=== PATIENT | female | born 1945 | race Two or more races ===

== ENCOUNTER 2017-08-31 08:25 | Outpatient (CLI) | payer OTHER | END 2017-08-31 08:30 | disposition home or self-care (01) | LOC: SONOGRAMA 08:25 | DX: E04.2 Nontoxic multinodular goiter (principal) ==

== ENCOUNTER 2017-11-30 08:41 | Outpatient (CLI) | payer OTHER | END 2017-11-30 08:52 | disposition home or self-care (01) | LOC: MAMO-SONO 08:41 | DX: Z12.31 Encounter for screening mammogram for malignant neoplasm of breast (principal); Z87.898 Personal history of other specified conditions; N60.11 Diffuse cystic mastopathy of right breast; N60.12 Diffuse cystic mastopathy of left breast ==

== ENCOUNTER 2018-06-03 10:06 | Outpatient (CLI) | payer OTHER | END 2018-06-03 17:00 | disposition home or self-care (01) | LOC: MAMO-SONO 10:06 | DX: Z12.31 Encounter for screening mammogram for malignant neoplasm of breast (principal); R92.1 Mammographic calcification found on diagnostic imaging of breast ==

== ENCOUNTER 2018-07-14 14:45 | Outpatient (CLI) | payer OTHER | END 2018-07-14 14:52 | disposition home or self-care (01) | LOC: RAD 14:45 | DX: M12.2 Villonodular synovitis (pigmented) (principal); M25.569 Pain in unspecified knee ==

== ENCOUNTER 2018-07-19 12:31 | Outpatient (CLI) | payer OTHER | END 2018-07-19 14:04 | disposition home or self-care (01) | LOC: SONOGRAMA 12:31 | DX: M75.31 Calcific tendinitis of right shoulder (principal) ==

== ENCOUNTER 2018-09-29 09:23 | Outpatient (CLI) | payer OTHER | END 2018-09-29 09:32 | disposition home or self-care (01) | LOC: SONOGRAMA 09:23 | DX: E04.2 Nontoxic multinodular goiter (principal) ==

== ENCOUNTER 2019-01-07 09:21 | Outpatient (CLI) | payer OTHER | END 2019-01-07 09:35 | disposition home or self-care (01) | LOC: MRI 09:21 | DX: M25.561 Pain in right knee (principal); M25.562 Pain in left knee | CPT/HCPCS: 73718 ==

== ENCOUNTER 2019-01-31 12:05 | Outpatient (CLI) | payer OTHER | END 2019-01-31 12:08 | disposition home or self-care (01) | LOC: RAD 12:05 | DX: M54.12 Radiculopathy, cervical region (principal) ==

== ENCOUNTER 2019-06-30 08:25 | Outpatient (CLI) | payer OTHER | END 2019-06-30 10:20 | disposition home or self-care (01) | LOC: NUCLEAR 08:25 | DX: R00.1 Bradycardia, unspecified (principal); R07.89 Other chest pain; E04.2 Nontoxic multinodular goiter ==

== ENCOUNTER 2019-07-05 11:10 | Outpatient (CLI) | payer OTHER | END 2019-07-05 11:57 | disposition home or self-care (01) | LOC: MAMO-SONO 11:10 | DX: Z12.31 Encounter for screening mammogram for malignant neoplasm of breast (principal); Z87.898 Personal history of other specified conditions ==

== ENCOUNTER 2020-08-13 11:41 | Outpatient (CLI) | payer OTHER | END 2020-08-13 14:51 | disposition home or self-care (01) | LOC: LAB 11:41 | PROVIDERS: ATTEND Radiology Diagnostic Radiology | DX: N20.0 Calculus of kidney (principal) ==

== ENCOUNTER 2020-08-15 11:15 | Outpatient (CLI) | payer OTHER | END 2020-08-15 11:25 | disposition home or self-care (01) | LOC: TOM 11:15 | PROVIDERS: ATTEND Internal Medicine Gastroenterology | DX: R10.13 Epigastric pain (principal) | CPT/HCPCS: 74177; Q9965 ==

== ENCOUNTER 2020-09-06 13:05 | Outpatient (CLI) | payer OTHER | END 2020-09-06 13:19 | disposition home or self-care (01) | LOC: SONOGRAMA 13:05 → MAMO-SONO 13:15 → SONOGRAMA 13:19 | PROVIDERS: ATTEND Internal Medicine Cardiovascular Disease | DX: E04.2 Nontoxic multinodular goiter (principal) ==

== ENCOUNTER 2021-01-04 11:16 | Outpatient (CLI) | payer OTHER | END 2021-01-04 11:18 | disposition home or self-care (01) | LOC: NUCLEAR 11:16 | DX: I87.2 Venous insufficiency (chronic) (peripheral) (principal) ==

== ENCOUNTER 2021-01-04 12:12 | Outpatient (CLI) | payer OTHER | END 2021-01-04 12:17 | disposition home or self-care (01) | LOC: RAD 12:12 | DX: M17.0 Bilateral primary osteoarthritis of knee (principal) ==

== ENCOUNTER 2021-03-13 08:33 | Outpatient (CLI) | payer OTHER | END 2021-03-13 08:48 | disposition home or self-care (01) | LOC: SONOGRAMA 08:33 → MAMO-SONO 08:45 → SONOGRAMA 08:48 | PROVIDERS: ATTEND Specialist | DX: M71.22 Synovial cyst of popliteal space [Baker], left knee (principal); M23.307 Other meniscus derangements, unspecified meniscus, left knee | CPT/HCPCS: 73721 ==

== ENCOUNTER 2021-03-25 10:54 | Outpatient (CLI) | payer OTHER | END 2021-03-25 11:09 | disposition home or self-care (01) | LOC: MAMO-SONO 10:54 | PROVIDERS: ATTEND Internal Medicine Cardiovascular Disease | DX: R92.0 Mammographic microcalcification found on diagnostic imaging of breast (principal); Z12.31 Encounter for screening mammogram for malignant neoplasm of breast ==

== ENCOUNTER 2021-04-18 12:53 | Outpatient (CLI) | payer OTHER | END 2021-04-18 12:59 | disposition home or self-care (01) | LOC: RAD 12:53 | PROVIDERS: ATTEND Internal Medicine | DX: M54.59 Other low back pain (principal) ==

== ENCOUNTER 2021-06-20 08:45 | Outpatient (CLI) | payer OTHER | END 2021-06-20 08:48 | disposition home or self-care (01) | LOC: SONOGRAMA 08:45 | PROVIDERS: ATTEND Pathology Anatomic Pathology & Clinical Pathology | DX: E04.1 Nontoxic single thyroid nodule (principal) ==

== ENCOUNTER 2021-10-31 09:19 | Outpatient (CLI) | payer OTHER | END 2021-10-31 09:31 | disposition home or self-care (01) | LOC: SONOGRAMA 09:19 | PROVIDERS: ATTEND Internal Medicine Hematology & Oncology | DX: R16.0 Hepatomegaly, not elsewhere classified (principal) ==

== ENCOUNTER 2021-11-01 11:27 | Outpatient (CLI) | payer OTHER | END 2021-11-01 11:28 | disposition home or self-care (01) | LOC: NUCLEAR 11:27 | PROVIDERS: ATTEND Internal Medicine Hematology & Oncology | DX: M81.0 Age-related osteoporosis without current pathological fracture (principal) ==

== ENCOUNTER 2022-04-22 12:43 | Outpatient (CLI) | payer OTHER | END 2022-04-22 12:48 | disposition home or self-care (01) | LOC: MAMO-SONO 12:43 | PROVIDERS: ATTEND Specialist | DX: Z12.39 Encounter for other screening for malignant neoplasm of breast (principal); N60.39 Fibrosclerosis of unspecified breast ==

== ENCOUNTER → 2022-06-24 | Outpatient (CLI) | payer OTHER | END | disposition home or self-care (01) | LOC: SONOGRAMA 11:15 | PROVIDERS: ATTEND Specialist | DX: E27.9 Disorder of adrenal gland, unspecified (principal); E03.8 Other specified hypothyroidism ==

== ENCOUNTER 2022-07-16 12:05 | Outpatient (CLI) | payer OTHER | END 2022-07-16 12:14 | disposition home or self-care (01) | LOC: RAD 12:05 | PROVIDERS: ATTEND Specialist | DX: I70.0 Atherosclerosis of aorta (principal) ==

== ENCOUNTER → 2022-10-15 | Outpatient (CLI) | payer OTHER | END | disposition home or self-care (01) | LOC: RAD 11:13 | PROVIDERS: ATTEND Ophthalmology | DX: Z98.41 Cataract extraction status, right eye (principal); H25.011 Cortical age-related cataract, right eye ==

== ENCOUNTER 2022-10-20 11:36 | Outpatient (CLI) | payer OTHER | END 2022-10-20 11:41 | disposition home or self-care (01) | LOC: LAB 11:36 → EKG 11:36 | PROVIDERS: ATTEND Ophthalmology | DX: I11.9 Hypertensive heart disease without heart failure (principal) ==

== ENCOUNTER 2022-10-31 08:49 | Outpatient (CLI) | payer OTHER | END 2022-10-31 08:53 | disposition home or self-care (01) | LOC: SONOGRAMA 08:49 | PROVIDERS: ATTEND Specialist | DX: E11.21 Type 2 diabetes mellitus with diabetic nephropathy (principal) ==

== ENCOUNTER 2023-04-29 08:09 | Outpatient (CLI) | payer OTHER | END 2023-04-29 08:19 | disposition home or self-care (01) | LOC: RAD 08:09 | PROVIDERS: ATTEND Specialist | DX: M12.569 Traumatic arthropathy, unspecified knee (principal); S83.249A Other tear of medial meniscus, current injury, unspecified knee, initial encounter | CPT/HCPCS: 73721 ==

== ENCOUNTER 2023-05-20 14:30 | Outpatient (CLI) | payer OTHER | END 2023-05-20 14:37 | disposition home or self-care (01) | LOC: RAD 14:30 | PROVIDERS: ATTEND Orthopaedic Surgery | DX: M25.561 Pain in right knee (principal); M25.562 Pain in left knee ==

== ENCOUNTER 2023-06-15 08:33 | Outpatient (CLI) | payer OTHER | END 2023-06-15 08:44 | disposition home or self-care (01) | LOC: RAD 08:33 | PROVIDERS: ATTEND Orthopaedic Surgery | DX: M54.50 Low back pain, unspecified (principal) ==

== ENCOUNTER → 2023-06-15 08:49 | Outpatient (CLI) | payer OTHER ==
[2023-06-15 10:57] LABS: ALBUMIN 4.1 gm/dL (3.4-5.0); BILIRUBIN TOTAL 0.47 mg/dL (0.3-1.2); CALCIUM 9.6 mg/dL (8.5-10.1); CREATININE SERUM 0.52 mg/dL (0.55-1.02); GFR 114.65; MAGNESIUM 2.2 mg/dL (1.8-2.4); PHOSPHOROUS 3.9 mg/dL (2.5-4.9); POTASSIUM 4.08 mEq/L (3.5-5.1); TOTAL PROTEIN 7.1 gm/dL (6.4-8.2)
[2023-06-17 05:43] LABS: CALCIUM IONIZED 5.1 mg/dL (4.5-5.6)
== END | disposition home or self-care (01) ==
LOC: LAB 08:49
PROVIDERS: ATTEND Orthopaedic Surgery
DX: E55.9 Vitamin D deficiency, unspecified (principal); E56.1 Deficiency of vitamin K; E21.3 Hyperparathyroidism, unspecified; M81.8 Other osteoporosis without current pathological fracture

== ENCOUNTER 2023-07-01 10:12 | Outpatient (CLI) | payer OTHER | END 2023-07-01 10:22 | disposition home or self-care (01) | LOC: MAMO-SONO 10:12 | PROVIDERS: ATTEND Specialist | DX: N60.39 Fibrosclerosis of unspecified breast (principal); Z12.39 Encounter for other screening for malignant neoplasm of breast; E03.9 Hypothyroidism, unspecified ==

== ENCOUNTER 2023-11-25 09:12 | Outpatient (CLI) | payer OTHER ==
[2023-11-25 09:46] LABS: HEMATOCRIT 36.5 % (36.0-45.00); HEMOGLOBIN 12.2 g/dL (12.0-15.00); MEAN CELL VOLUME 92.7 fL (80.00-100.00); MEAN CORPUSCULAR HEMOGLOBIN 31.1 pg (27.00-32.0); MEAN CORPUSCULAR HGB CONC 33.5 g/dl (32.0-36.0); PLATELET COUNT 166 K/uL (150-450); RED BLOOD COUNT 3.93 M/uL (4.00-6.00); RED CELL DISTRIBUTION WIDTH 13.5 % (11.5-14.5)
[2023-11-25 09:59] LABS: PH,URINE 5.5 (5.0-8.0); URINE APPEARANCE Clear; URINE BILIRRUBIN Negative (NEGATIVE); URINE BLOOD Negative; URINE COLOR Yellow; URINE GLUCOSE Negative (NEGATIVE); URINE LEUKOCYTE Trace; URINE NITRATE Negative; URINE PROTEIN Negative (NEGATIVE)
[2023-11-25 10:00] LABS: URINE BACTERIA 56.6 uL (0.0-1933); URINE EPITHELIAL CELLS 8.6 uL (0.0-38.8); URINE RBC 6.1 uL (0.0-20.8); URINE WBC 11.4 uL (0.0-23.2)
[2023-11-25 10:42] LABS: BILIRUBIN TOTAL 0.74 mg/dL (0.3-1.2); CALCIUM 8.7 mg/dL (8.5-10.1); CHOL HDL RATIO 3.2 (0-5.0); CREATININE SERUM 0.56 mg/dL (0.55-1.02); FREE TRIODOTIRONINE 2.64 pg/ml (2.18-3.98); GFR 104.97; GLOBULINA 3.2 G/DL (2.4-3.5); T4 FREE 1.06 NG/ML (0.76-1.46); TOTAL PROTEIN 7.2 gm/dL (6.4-8.2); TSH 1.21 uIU/mL (0.358-3.74)
== END 2023-11-25 09:17 | disposition home or self-care (01) ==
LOC: LAB 09:12
PROVIDERS: ATTEND Specialist
DX: E11.69 Type 2 diabetes mellitus with other specified complication (principal); N39.9 Disorder of urinary system, unspecified; E11.21 Type 2 diabetes mellitus with diabetic nephropathy; E03.8 Other specified hypothyroidism; D64.89 Other specified anemias; Z13.220 Encounter for screening for lipoid disorders

== ENCOUNTER → 2024-03-25 09:18 | Outpatient (CLI) | payer OTHER ==
[2024-03-25 09:53] LABS: HEMATOCRIT 35.6 % (36.0-45.00); HEMOGLOBIN 12.3 g/dL (12.0-15.00); MEAN CELL VOLUME 90.8 fL (80.00-100.00); MEAN CORPUSCULAR HEMOGLOBIN 31.4 pg (27.00-32.0); MEAN CORPUSCULAR HGB CONC 34.5 g/dl (32.0-36.0); PLATELET COUNT 203 K/uL (150-450); RED BLOOD COUNT 3.92 M/uL (4.00-6.00); RED CELL DISTRIBUTION WIDTH 13.9 % (11.5-14.5)
[2024-03-25 09:58] LABS: URINE APPEARANCE Clear; URINE BILIRRUBIN Negative (NEGATIVE); URINE BLOOD Negative; URINE COLOR Yellow; URINE GLUCOSE Negative (NEGATIVE); URINE KETONE Negative (NEGATIVE); URINE LEUKOCYTE Small; URINE NITRATE Negative; URINE PROTEIN Negative (NEGATIVE); URINE UROBILINOGEN 0.2 E.U./dl
[2024-03-25 10:03] LABS: URINE BACTERIA 62.9 uL (0.0-1933); URINE RBC 6.5 uL (0.0-20.8)
[2024-03-25 11:06] LABS: ALBUMIN 3.9 gm/dL (3.4-5.0); ALKALINE PHOSPHATASE 47 U/L (50-136); ALT/SGPT 21 U/L (12-78); ANION GAP 10 (10.0-20.0); AST/SGOT 15 U/L (15-37); BLOOD UREA NITROGEN 15 mg/dL (7-18); BUN CREA RATIO 25 (7.0-25.0); C-REACTIVE PROTEIN < 0.29 MG/DL (0.00-0.29); CALCIUM 8.8 mg/dL (8.5-10.1); CARBON DIOXIDE 29 mEq/L (21-32); CHLORIDE 107 mmol/L (98-107); CHOLESTEROL 191 mg/dL (0-200); CREATININE SERUM 0.61 mg/dL (0.55-1.02); FREE TRIODOTIRONINE 2.72 pg/ml (2.18-3.98); GLOBULINA 2.8 G/DL (2.4-3.5); GLUCOSE FASTING 87 mg/dL (65-100); HDL 63 mg/dl (40-60); LDL 113 mg/dl (0-130); OSMOLALITY SERUM 283 MOSM/KG (275-295); POTASSIUM 3.98 mEq/L (3.5-5.1); SODIUM 142 mmol/L (136-145); T4 FREE 1.03 NG/ML (0.76-1.46); TOTAL PROTEIN 6.7 gm/dL (6.4-8.2); TRIGLYCERIDES 77 mg/dL (0-150); VLDL 15 (0-39)
== END | disposition home or self-care (01) ==
LOC: LAB 09:18
PROVIDERS: ATTEND Specialist
DX: E11.21 Type 2 diabetes mellitus with diabetic nephropathy (principal); M00.80 Arthritis due to other bacteria, unspecified joint; N39.9 Disorder of urinary system, unspecified; N25.81 Secondary hyperparathyroidism of renal origin; E11.69 Type 2 diabetes mellitus with other specified complication; D64.89 Other specified anemias; E03.8 Other specified hypothyroidism; Z13.220 Encounter for screening for lipoid disorders

== ENCOUNTER → 2024-03-29 | Outpatient (CLI) | payer OTHER | END | disposition home or self-care (01) | LOC: LAB 15:31 | PROVIDERS: ATTEND Specialist | DX: D64.9 Anemia, unspecified (principal) ==

== ENCOUNTER 2024-06-27 10:48 | Outpatient (CLI) | payer OTHER ==
[2024-06-27 11:35] LABS: HEMATOCRIT 36.8 % (36.0-45.00); HEMOGLOBIN 12.8 g/dL (12.0-15.00); MEAN CORPUSCULAR HEMOGLOBIN 31.2 pg (27.00-32.0); MEAN CORPUSCULAR HGB CONC 34.7 g/dl (32.0-36.0); PLATELET COUNT 187 K/uL (150-450); RED BLOOD COUNT 4.09 M/uL (4.00-6.00); RED CELL DISTRIBUTION WIDTH 13.1 % (11.5-14.5)
[2024-06-27 12:42] LABS: URINE APPEARANCE Clear; URINE BILIRRUBIN Negative (NEGATIVE); URINE BLOOD Negative; URINE COLOR Yellow; URINE GLUCOSE Negative (NEGATIVE); URINE KETONE Trace (NEGATIVE); URINE LEUKOCYTE Negative; URINE NITRATE Negative; URINE PROTEIN Negative (NEGATIVE); URINE UROBILINOGEN 0.2 E.U./dl
[2024-06-27 12:46] LABS: URINE RBC 5.4 uL (0.0-20.8)
[2024-06-27 12:53] LABS: URINE BACTERIA 2.4 uL (0.0-1933); URINE CAST 0.58 uL (0.0-1.40); URINE EPITHELIAL CELLS 1.1 uL (0.0-38.8); URINE WBC 1.7 uL (0.0-23.2)
[2024-06-27 13:04] LABS: ALBUMIN 3.9 gm/dL (3.4-5.0); BILIRUBIN TOTAL 0.65 mg/dL (0.3-1.2); CALCIUM 9.2 mg/dL (8.5-10.1); CHOL HDL RATIO 2.8 (0-5.0); CREATININE SERUM 0.55 mg/dL (0.55-1.02); FREE TRIODOTIRONINE 2.61 pg/ml (2.18-3.98); GFR 107.18; GLOBULINA 3.3 G/DL (2.4-3.5); POTASSIUM 4.3 mEq/L (3.5-5.1); T4 FREE 1.2 NG/ML (0.76-1.46); TOTAL PROTEIN 7.2 gm/dL (6.4-8.2); TSH 1.42 uIU/mL (0.358-3.74)
== END 2024-06-27 10:49 | disposition home or self-care (01) ==
LOC: LAB 10:48
PROVIDERS: ATTEND Specialist
DX: E03.9 Hypothyroidism, unspecified (principal); E11.21 Type 2 diabetes mellitus with diabetic nephropathy; N39.9 Disorder of urinary system, unspecified; E78.2 Mixed hyperlipidemia; E11.65 Type 2 diabetes mellitus with hyperglycemia; D64.9 Anemia, unspecified; N39.0 Urinary tract infection, site not specified; E55.9 Vitamin D deficiency, unspecified

== ENCOUNTER → 2024-07-25 09:12 | Outpatient (CLI) | payer OTHER ==
[2024-07-25 11:03] LABS: ALBUMIN 3.9 gm/dL (3.4-5.0); BILIRUBIN TOTAL 0.69 mg/dL (0.3-1.2); CREATININE SERUM 0.54 mg/dL (0.55-1.02); GFR 109.47; GLOBULINA 3.1 G/DL (2.4-3.5); MAGNESIUM 2.3 mg/dL (1.8-2.4); PHOSPHOROUS 3.1 mg/dL (2.5-4.9); POTASSIUM 4.1 mEq/L (3.5-5.1)
[2024-07-26 15:09] LABS: CALCIUM IONIZED 4.9 mg/dL (4.5-5.6)
== END | disposition home or self-care (01) ==
LOC: LAB 09:12
PROVIDERS: ATTEND Orthopaedic Surgery
DX: E55.9 Vitamin D deficiency, unspecified (principal); M85.9 Disorder of bone density and structure, unspecified; E56.1 Deficiency of vitamin K; E21.3 Hyperparathyroidism, unspecified; E88.89 Other specified metabolic disorders; M81.8 Other osteoporosis without current pathological fracture

== ENCOUNTER 2024-08-15 13:56 | Outpatient (CLI) | payer OTHER | END 2024-08-15 13:58 | disposition home or self-care (01) | LOC: NUCLEAR 13:56 | PROVIDERS: ATTEND Orthopaedic Surgery | DX: M81.0 Age-related osteoporosis without current pathological fracture (principal) ==

== ENCOUNTER 2024-09-06 09:05 | Outpatient (CLI) | payer OTHER | END 2024-09-07 09:08 | disposition home or self-care (01) | LOC: MAMO-SONO 09:05 | PROVIDERS: ATTEND Specialist | DX: E03.9 Hypothyroidism, unspecified (principal); N60.39 Fibrosclerosis of unspecified breast; Z12.31 Encounter for screening mammogram for malignant neoplasm of breast; Z12.39 Encounter for other screening for malignant neoplasm of breast; R51.0 Headache with orthostatic component, not elsewhere classified ==

== ENCOUNTER → 2024-09-09 07:38 | Outpatient (CLI) | payer OTHER ==
[2024-09-09 08:26] LABS: CALCIUM 8.8 mg/dL (8.5-10.1); CREATININE SERUM 0.52 mg/dL (0.55-1.02); GFR 114.04; POTASSIUM 3.92 mEq/L (3.5-5.1)
== END | disposition home or self-care (01) ==
LOC: LAB 07:38
PROVIDERS: ATTEND Otolaryngology
DX: I10 Essential (primary) hypertension (principal)

== ENCOUNTER → 2024-09-09 | Outpatient (CLI) | payer OTHER | END | disposition home or self-care (01) | LOC: MRI 08:04 | PROVIDERS: ATTEND Otolaryngology | DX: D49.2 Neoplasm of unspecified behavior of bone, soft tissue, and skin (principal) | CPT/HCPCS: 70553; Q9965 ==

== ENCOUNTER → 2024-09-29 09:39 | Outpatient (CLI) | payer OTHER ==
[2024-09-29 10:57] LABS: BASO % 0.6 % (0.1-1.2); EOS # 0.03 (0.04-0.54); EOS % 0.6 % (0.7-7.0); HEMATOCRIT 33.7 % (34.1-44.9); HEMOGLOBIN 11.2 g/dL (11.2-15.7); LYMPH # 1.02 (1.18-3.74); LYMPH % 21.5 % (19.3-53.1); MEAN CORPUSCULAR HEMOGLOBIN 29.9 pg (25.6-32.2); MONO % 6.3 % (4.7-12.5); NEUT # 3.35 (1.56-6.13); NEUT % 70.6 % (34.0-71.1); PLATELET COUNT 179 K/uL (163-369); RED BLOOD COUNT 3.74 M/uL (3.93-5.22); RED CELL DISTRIBUTION WIDTH 13.5 % (11.6-14.4)
[2024-09-29 10:59] LABS: PH,URINE 7.5 (5.0-8.0); URINE APPEARANCE Clear; URINE BILIRRUBIN Negative (NEGATIVE); URINE BLOOD Negative; URINE COLOR Yellow; URINE GLUCOSE Negative (NEGATIVE); URINE KETONE Negative (NEGATIVE); URINE LEUKOCYTE Small; URINE NITRATE Negative; URINE PROTEIN Negative (NEGATIVE); URINE UROBILINOGEN 0.2 E.U./dl
[2024-09-29 11:02] LABS: URINE BACTERIA 13.4 uL (0.0-1933); URINE EPITHELIAL CELLS 4.1 uL (0.0-38.8); URINE RBC 2.9 uL (0.0-20.8); URINE WBC 26.8 uL (0.0-23.2)
[2024-09-29 11:10] LABS: CREATININE URINE RANDOM 73.8 MG/DL (30-125)
[2024-09-29 12:02] LABS: ALBUMIN 3.7 gm/dL (3.4-5.0); BILIRUBIN TOTAL 0.58 mg/dL (0.3-1.2); CALCIUM 8.8 mg/dL (8.5-10.1); CHOL HDL RATIO 2.8 (0-5.0); CREATININE SERUM 0.54 mg/dL (0.55-1.02); FREE TRIODOTIRONINE 2.51 pg/ml (2.18-3.98); GFR 109.18; POTASSIUM 4.19 mEq/L (3.5-5.1); T4 FREE 1.08 NG/ML (0.76-1.46); TOTAL PROTEIN 6.7 gm/dL (6.4-8.2); TSH 1.5 uIU/mL (0.358-3.74)
== END | disposition home or self-care (01) ==
LOC: LAB 09:39
PROVIDERS: ATTEND Specialist
DX: E03.9 Hypothyroidism, unspecified (principal); E11.21 Type 2 diabetes mellitus with diabetic nephropathy; N39.9 Disorder of urinary system, unspecified; E78.2 Mixed hyperlipidemia; E11.65 Type 2 diabetes mellitus with hyperglycemia; D64.9 Anemia, unspecified; E55.9 Vitamin D deficiency, unspecified

== ENCOUNTER 2024-11-03 08:50 | Outpatient (CLI) | payer OTHER ==
[2024-11-03 09:28] LABS: BASO % 0.3 % (0.1-1.2); EOS # 0.04 (0.04-0.54); EOS % 0.6 % (0.7-7.0); HEMATOCRIT 33.5 % (34.1-44.9); HEMOGLOBIN 11.1 g/dL (11.2-15.7); LYMPH # 1.04 (1.18-3.74); MEAN CORPUSCULAR HEMOGLOBIN 29.6 pg (25.6-32.2); MONO % 6.1 % (4.7-12.5); NEUT # 4.98 (1.56-6.13); NEUT % 76.5 % (34.0-71.1); PLATELET COUNT 202 K/uL (163-369); RED BLOOD COUNT 3.75 M/uL (3.93-5.22); RED CELL DISTRIBUTION WIDTH 13.3 % (11.6-14.4)
[2024-11-03 10:41] LABS: % SATURACION 20.8 % (15-50); FERRITIN 22.9 NG/ML (8-252)
[2024-11-03 11:50] LABS: FOLIC ACID 13.86 ng/ml (4.78-20)
[2024-11-04 13:12] LABS: hgb a 97.5 % (96.4-98.8); hgb a2 2.5 % (1.8-3.2); hgb f 0 % (0.0-2.0); hgb s 0 % (0.0)
== END 2024-11-03 08:54 | disposition home or self-care (01) ==
LOC: LAB 08:50
PROVIDERS: ATTEND Specialist
DX: D64.9 Anemia, unspecified (principal); D51.0 Vitamin B12 deficiency anemia due to intrinsic factor deficiency

== ENCOUNTER 2024-11-03 09:39 | Outpatient (CLI) | payer OTHER | END 2024-11-03 09:44 | disposition home or self-care (01) | LOC: RAD 09:39 | PROVIDERS: ATTEND Orthopaedic Surgery | DX: M54.2 Cervicalgia (principal) ==

== ENCOUNTER → 2025-01-13 07:31 | Outpatient (CLI) | payer OTHER ==
[2025-01-13 08:34] LABS: ALT/SGPT 17.0 U/L (12-78); AST/SGOT 16.0 U/L (15-37); BILIRUBIN TOTAL 0.58 mg/dL (0.3-1.2); BUN CREA RATIO 37.0 (7.0-25.0); CREATININE SERUM 0.52 mg/dL (0.55-1.02); GFR 114.04; GLOBULINA 3.4 G/DL (2.4-3.5); GLUCOSE FASTING 96.0 mg/dL (65-100); OSMOLALITY SERUM 285.0 MOSM/KG (275-295)
== END | disposition home or self-care (01) ==
LOC: LAB 07:31
PROVIDERS: ATTEND Orthopaedic Surgery
DX: E88.89 Other specified metabolic disorders (principal)

== ENCOUNTER → 2025-02-01 08:49 | Outpatient (CLI) | payer OTHER ==
[2025-02-01 09:36] LABS: BASO % 0.6 % (0.1-1.2); EOS # 0.03 (0.04-0.54); EOS % 0.6 % (0.7-7.0); LYMPH # 0.93 (1.18-3.74); LYMPH % 18.8 % (19.3-53.1); MEAN PLATELET VOLUME 10.70 fl (9.4-12.4); MONO # 0.33 (0.24-0.82); MONO % 6.7 % (4.7-12.5); NEUT # 3.62 (1.56-6.13); NEUT % 73.1 % (34.0-71.1); RED CELL DISTRIBUTION WIDTH 13.9 % (11.6-14.4)
[2025-02-01 10:31] LABS: ALT/SGPT 15.0 U/L (12-78); AST/SGOT 17.0 U/L (15-37); BILIRUBIN TOTAL 0.6 mg/dL (0.3-1.2); BUN CREA RATIO 24.0 (7.0-25.0); CREATININE SERUM 0.5 mg/dL (0.55-1.02); GFR 119.32; GLOBULINA 3.2 G/DL (2.4-3.5); GLUCOSE FASTING 96.0 mg/dL (65-100); OSMOLALITY SERUM 281.0 MOSM/KG (275-295)
== END | disposition home or self-care (01) ==
LOC: LAB 08:49
PROVIDERS: ATTEND Specialist
DX: D64.9 Anemia, unspecified (principal); E11.65 Type 2 diabetes mellitus with hyperglycemia

== ENCOUNTER 2025-02-28 07:15 | Outpatient (CLI) | payer OTHER | END 2025-02-28 07:16 | disposition home or self-care (01) | LOC: NUCLEAR 07:15 | PROVIDERS: ATTEND Internal Medicine | DX: I20.9 Angina pectoris, unspecified (principal) | CPT/HCPCS: 78452; 93017; A9500 ==

== ENCOUNTER 2025-04-21 08:37 | Outpatient (CLI) | payer OTHER ==
[2025-04-21 09:17] LABS: BASO % 0.7 % (0.1-1.2); EOS # 0.03 (0.04-0.54); EOS % 0.7 % (0.7-7.0); LYMPH # 0.82 (1.18-3.74); LYMPH % 17.8 % (19.3-53.1); MEAN PLATELET VOLUME 11.00 fl (9.4-12.4); MONO # 0.34 (0.24-0.82); MONO % 7.4 % (4.7-12.5); NEUT # 3.37 (1.56-6.13); NEUT % 73.2 % (34.0-71.1); RED CELL DISTRIBUTION WIDTH 13.8 % (11.6-14.4)
[2025-04-21 09:40] LABS: CREATININE URINE RANDOM 43.60 MG/DL (30-125)
[2025-04-21 10:15] LABS: ALT/SGPT 21.0 U/L (12-78); AST/SGOT 16.0 U/L (15-37); BILIRUBIN TOTAL 0.67 mg/dL (0.3-1.2); BUN CREA RATIO 21.0 (7.0-25.0); CHOL HDL RATIO 2.5 (0-5.0); CREATININE SERUM 0.63 mg/dL (0.55-1.02); GFR 91.39; GLOBULINA 3.1 G/DL (2.4-3.5); GLUCOSE FASTING 97.0 mg/dL (65-100); HDL 65.0 mg/dl (40-60); LDL 85.0 mg/dl (0-130); OSMOLALITY SERUM 283.0 MOSM/KG (275-295); T4 FREE 1.19 NG/ML (0.76-1.46); TSH 1.3 uIU/mL (0.358-3.74); VLDL 12.0 (0-39)
== END 2025-04-21 08:46 | disposition home or self-care (01) ==
LOC: LAB 08:37
PROVIDERS: ATTEND Specialist
DX: E03.9 Hypothyroidism, unspecified (principal); E11.21 Type 2 diabetes mellitus with diabetic nephropathy; E78.2 Mixed hyperlipidemia; E11.65 Type 2 diabetes mellitus with hyperglycemia; D64.9 Anemia, unspecified; D51.3 Other dietary vitamin B12 deficiency anemia